=== PATIENT | female | born 1985 | race Caucasian/White ===

== ENCOUNTER → 2016-11-22 | Outpatient (CLI) | payer OTHER ==
[~2016-11-22] MED LIST: ADVIL200 M1; ALBUTEROL17 G1 IH; AURALGAN EAR DR14 ML OT; AURALGAN OTIC S10 M1 OT; B 12 INJECTIONS; CIPRO HC OTIC S10 ML OT; CIPRO PO; DICLOFENAC PO; EAR DROPS; FLEXERIL10 M1 PO; FLOXIN OTIC5 M1 OT; HYCODAN PO; IBUPROFEN800 MG PO; LORTAB 5/500 TA1 TA2 PO; MACROBID100 MG PO; MOTRIN600 MG PO; MUCINEX DM ER1 EACH PO; NEURONTIN PO; NO MEDICATIONS; OMNICEF300 M1 PO; PHENERGAN PO; PREDNISONE10 MG PO; ROBITUSSIN A-C S5 ML PO; ULTRAM PO; VICODIN PO; VOLTAREN50 MG PO; VOLTAREN75 MG PO; ZITHROMAX PO; ZITHROMAX1 G/PKT PO; ZOFRAN PO
--- NOTE | ~2016-11-22 | CR126 ---
[facility]. [facility] A Service [facility] RADIOLOGY TEXT RESULTS PATIENT: FELICITA DUNN LOCATION: [facility] : [birth year] UNIT #: [id number] AGE: [address]: Haim Obrien MD SEX: F ORDER DR: [id number] [place] [id number] O MR#: [id number] Acc #: [id number] NAME: FELICITA DUNN : 1985 SEX: F STUDY DATE/TIME: 11/22/2016 11:40 UNIT: SRA ROOM: STUDY DESCRIPTION: CR Foot Complete Min 3 View Lt Attending Physician: Haim Obrien M.D. Referring Physician: Haim Obrien M.D. Ordering Physician: Haim Obrien M.D. Primary Care Physician: Haim Obrien M.D. MEDICAL IMAGING REPORT This report is preliminary unless electronic signature is present. EXAM Left foot 11/22/2016 INDICATIONS 31-year-old female with left foot pain and swelling. Pain on the top and medial aspect of the foot for a week. History of cervical cancer. No recent trauma. TECHNIQUE 3 views of the left foot. COMPARISON STUDIES No comparisons. FINDINGS The examination is negative. No acute fracture. Joint space is preserved. Soft tissues within normal limits. IMPRESSION 1. Negative left foot. Dictated by... Jackson Sanders M.D. THIS IS AN ELECTRONICALLY VERIFIED REPORT Jackson Sanders M.D. at 11/23/2016 7:10 AM BRENTON/candelario TD: 11/23/2016 03:10 JOB #: [id number] [facility]. [facility] A Service [facility] RADIOLOGY TEXT RESULTS PATIENT: FELICITA DUNN LOCATION: [facility] : 87 UNIT #: [id number] AGE: [address]: Haim Obrien MD SEX: F ORDER DR: MEDICAL IMAGING REPORT Page 1 of 1
== END | disposition home or self-care (01) ==
LOC: SRAD 11:32
DX: M79.672 Pain in left foot (principal)
CPT/HCPCS: 73630